=== PATIENT | male | born 1985 | race Caucasian/White ===

== ENCOUNTER 2016-04-21 | Outpatient (CLI) | payer MEDICAID | END 2016-04-21 18:41 | disposition critical access hospital (66) | DX: R41.82 Altered mental status, unspecified (principal) | CPT/HCPCS: A0425; A0429 ==

== ENCOUNTER 2016-04-21 19:15 | Emergency (ER) | payer MEDICAID ==
[2016-04-21] MEDS ORDERED: SODIUM CHLORIDE 0.9% 1,000 ML IV ONE (19:21)
== END 2016-04-22 05:30 | disposition home or self-care (01) ==
DX: R41.0 Disorientation, unspecified (principal); F12.10 Cannabis abuse, uncomplicated; F11.10 Opioid abuse, uncomplicated